=== PATIENT | male | born 1980 | race Caucasian/White ===

== ENCOUNTER 2020-02-15 17:50 | Emergency (ER) | payer OTHER, SELFPAY ==
--- NOTE | ~2020-02-15 | XR_ITS ---
EXAMINATION: XR abdomen/kub 1V INDICATION: Hematuria TECHNIQUE: Supine views of the abdomen were obtained on 2 radiographs. COMPARISON: None FINDINGS: The bowel gas pattern is normal. No urinary tract calculi are identified. Phleboliths are n oted in the pelvis. IMPRESSION: 1. No radiographic correlate for the patient's symptoms. Reviewed, dictated and finalized at location A.
[2020-02-15 18:04] VITALS: BP 163/91; PULSE 81; RESP 16; O2SAT 99
--- NOTE | 2020-02-15 18:40 | ED.GENADULT ---
HPI - General Adult General Chief complaint: Urogenital-Male Stated complaint: blood in urine Time Seen by Provider: 02/15/20 18:40 Source: patient and RN notes reviewed Mode of arrival: ambulatory Limitations: no limitations History of Present Illness HPI narrative: 39-year-old male presents with complaints of dysuria for 1 day. Dysuria consist of intermittent burning, frequency, and hematuria.? Chaz says approximately at 10am he noticed something sticky on his leg and went to the bathroom, it was blood he then urinated blood. Has had several bloody urines since. No treatment.? History of kidney stones. Denies fever or chills.? Denies nausea, vomiting, and abdominal pain. No genital discharge.? No concerns for STDs. No new back or flank pain.? No injuries. Exacerbating factors urinating.? Denies genital bleeding. Remains active. The patient reports he have not been diagnosed with COVID-19. The patient reports he is not waiting for the results of a COVID-19 lab test. The patient reports he do not have fever, chills, weakness, or fatigue. The patient reports he do not have a new or worsening cough or shortness of breath. Denies chest pain. The patient reports he do not have any rhinorrhea, congestion, sore throat, and diarrhea. Tolerating po intake well. Denies recent traveling. Denies concerns for COVID-19 or exposures been home since [id number] order except for essential household needs, working, and return home. At this time, patient is not suspected of having COVID-19. Some parts of this dictation were generated by voice recognition software and may contain typographical and/or grammatical inaccuracies. Related Data Allergies Allergy/AdvReac Type Severity Reaction Status Date / Time No Known Allergies Allergy Verified 02/15/20 18:02 Review of Systems Review of Systems: Narrative: CONSTITUTIONAL: Denies fever, chills, sweats. EYES: Denies visual changes, redness, discharge. ENT: Denies rhinorrhea, congestion, sore throat, otalgia. CARDIOVASCULAR: Denies chest pain, palpitations, edema. RESPIRATORY: Denies dyspnea, wheezing, cough. GASTROINTESTINAL: Denies abdominal pain, nausea, vomiting, diarrhea. GENITOURINARY: Complains of dysuria (burning, hematuria, and frequency). Denies abnormal discharge. SKIN: Denies rash or itching. MUSCULOSKELETAL: Denies acute back pain, joint pain, or myalgia. NEUROLOGIC: Denies numbness or focal weakness. PSYCHIATRIC: Denies anxiety or depression. All other systems reviewed are negative, except as documented in HPI and below. [facility] Past Medical History Medical History Chronic back pain Kidney stones Surgical History Surgical History No significant past surgical history Family History Family History Father Family history of seizure disorder Other Malignant neoplasm of prostate Social History Social History (Updated 02/15/20 @ 18:56 by MERE Montano) Smoking status: Former smoker Second hand tobacco smoke exposure: No Smoking end date: 01/21/10 Alcohol intake: current Substance use: never Living arrangements: with family Occupation/Education: occupation Gender identity (if verbalized by the patient): Male Comments At time of signature, agree with nurse past medical, surgical, social, and family history.? There is relevant patient's past medical history pertinent to the presenting complaint, no relevant family history pertinent to the presenting complaint. Exam Narrative: Exam Narrative: GENERAL: This is a well-nourished, well-developed patient, in no apparent distress.? Talks in full sentences and ambulates with steady gait without dyspnea. HEAD: normocephalic, atraumatic. EYES: PERRL. Sclera clear/white. Vision is grossly intact. CARDIOVASCULAR: Regular rate and rhythm
== END 2020-02-15 19:17 | disposition home or self-care (01) ==
PROVIDERS: Emergency Provider Nurse Practitioner Family
DX: R31.9 Hematuria, unspecified (principal)
CPT/HCPCS: 74018; 81003; 87086; 99203; G0463

== ENCOUNTER 2024-11-05 08:04 | Emergency (ER) | payer OTHER, SELFPAY ==
--- OUTSIDE RECORDS SUMMARY | 2024-11-05 08:06 | XMS_ITS | Encounter Summary ---
Author Organization [facility] Address [address] [address] Care Team Providers Care Stonemason Name Role Phone Unavailable Primary Care Provider Unavailabl e Encounter Details Date Type Department Care Team (Late st Contact Info) Description 11/09/2020 Lab Requisition [facility] DermPath Lab [address] [place] [id number] Christopher Leal MD [address] [place] [address] Social History Tobacco Use Types Packs/Day Years Used Date Smoking Tobacco: Never Assessed Sex and Gender Information Value Date Recorded Sex Assigned at Not on file Gender Identity Not on file Sexual Orientation Not on file documented as of this encounter Plan of Treatment Not on file documented as of this encounter Procedures Procedure Name Priority Date/Time Associated Diagnosis Comments DERMATOPATHOLOGY Routine 11/07/2020 3:33 AM CDT documented in this encounter Results * DERMATOPATHOLOGY (11/07/2020 3:33 AM CDT) Case Report Dermatopathology Report Case: [id number] Authorizing Provider: Christopher Leal MD Collected: 11/07/2020 03:33 AM Ordering Location: [facility] Derm[facility] Lab Received: 11/09/2020 02:04 PM Pathologist: Stephan Chakraborty MD Specimen: Skin, left upper back 3:26 PM CDT DERMATOPATHOLOGY LABORATORY Final Diagnosis Specimen A. 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 Path# [id number]. 3:26 PM CDT DERMATOPATHOLOGY LABORATORY Gross Description Specimen A: Received is one formalin filled container labeled with the patient's name and designated left upper back. The specimen consists of a shave biopsy measuring [id number]. Jar 0. . 3:26 PM CDT DERMATOPATHOLOGY LABORATORY Microscopic Description Specimen A. SKIN, left upper back: There are nests of melanocytes at the dermal-epidermal junction and within the dermis. 3:26 PM CDT DERMATOPATHOLOGY LABORATORY Disclaimer An external and internal positive and negative controls are appropriate for the histochemical, immunohistochemical and immunofluorescence stain(s) in this case (if any), except where stated explicitly. The performance characteristics of the stain(s) cited in this report were developed and its performance characteristic determined by the Dermatopathology Laboratory at [facility], directed by Dr. Marleny Chakraborty. These tests need not be, and therefore are not, approved by the [place] Food and Drug Administration. The tests are used for clinical purposes. Billing Codes Specimen Charges Stain Charges 82597 1 3:26 PM CDT DERMATOPATHOLOGY LABORATORY Embedded Images 3:26 PM CDT DERMATOPATHOLOGY LABORATORY Pathology/Cytolo gy TISSUE SPECIMEN FROM SKIN / Unknown 11/07/2020 3:33 AM CDT 11/09/2020 2:04 PM CDT Christopher Leal MD LAB - PATHOLOGY/CYTO LOGY ORDERABLES DERMATOPATHOLOGY LABORATORY [facility] - Department of Dermatology [address] [phone] documented in this encounter Visit Diagnoses Not on filedocumented in this encounter
--- OUTSIDE RECORDS SUMMARY | 2024-11-05 08:06 | XMS_ITS | Referral Summary ---
Author Organization [facility] Address [address] [place] [address] Care Team Providers Care Consulting Services Manager Name Role Phone Unavailable Primary Care Provider Unavailabl e Source Comments [facility],non-[facility] Affiliates and Associated Physician Practices is amultiple site organization consisting of ambulatory clinics and hospital sitesin [place], [place], [place] and [place]. This disclosure is being madepursuant to the Care Everywhere program and may not contain all information available regarding this patient. Last updated 18.[facility] [employer] Social History Tobacco Use Types Packs/Day Years Used Date Smoking Tobacco: Never Assessed Sex and Gender Information Value Date Recorded Sex Assigned at Not on file Gender Identity Not on file Sexual Orientation Not on file Plan of Treatment Not on file
--- OUTSIDE RECORDS SUMMARY | 2024-11-05 08:06 | XMS_ITS | Data Portability ---
Author Organization [place] [facility] [employer], Main Office Address [address] [place] [address] Assessment No assessment recorded. Plan of Treatment Reminders Order Date Submit Date Provider Last Modified By Organization Details Last Modified Time Details Appointments None record ed. Lab None record ed. Referral None record ed. Procedures None record ed. Surgeries None record ed. Imaging None record ed. Medication Orders None record ed. Patient TargetsNo targets recorded. Patient InstructionsNo instructions recorded. Reason for Referral None Reported. Results Created Date Observation Date Name Description Value Unit Range Abnormal Flag Note LastModifiedBy Organization Detail LastModifiedTime Result Notes None recorded. Problems No Known Problems Procedures Surgical History Date Name Laterality Status Provider Name and Address Organization Details Recorded Time extraction of wisdom tooth completed Not Available [facility] 10/21/2022 22:05:28 Imaging Results None recorded. Procedure Notes None recorded. Medical Equipment None Reported. Allergies No known drug allergies Medications Name Sig Start Date Stop Date Status Note LastModified by Organization Details LastModified Time ciprofloxacin 500 mg tablet TK 1 T PO Q 12 H 08/05 completed Not Available Not Available Not Available tamsulosin 0.4 mg capsule 04/25 completed Not Available Not Available Not Available cyclobenzapri ne 5 mg tablet Take 1 tablet every day by oral route for 5 days. 08/05 completed for back pain Not Available Not Available Not Available Vitals Date Recorded Body mass index (BMI) Body height Oxygen saturation Oxygen saturation in Arterial blood by Pulse oximetry Heart rate Body temperature Body weight Systolic blood pressure Diastolic blood pressure Provider Name and Address Organization Details Last Updated DateTime 2 29.8 kg/m2 187.96 cm 97 % 97 % 62 /min 97.2 [degF] 658021. 43 g 122 mm[Hg] 84 mm[Hg] Not Available [facility] 3 22:06:00 Social History Question Answer Notes LastModified by Organizat ion Details LastModified Time Tobacco Smoking Status Former Smoker Not Available [facility] 10/21/2022 22:05:20 Do You Have An Advance Directive? No [id number] Information not available 10/21/2022 What Is Your Level Of Alcohol Consumption? Heavy [id number].[id number] Information not available 10/21/2022 What Is Your Level Of Caffeine Consumption? Heavy [id number].[id number] 0884 Information not available 10/21/2022 In The 14 Days Before Symptom Onset, Have You Had Close Contact With A Laboratory-confir med COVID-19 While That Case Was Ill? No [id number].[id number] Information not available 10/21/2022 In The 14 Days Before Symptom Onset, Have You Had Close Contact With A Person Who Is Under Investigation For COVID-19 While That Person Was Ill? No [id number] 1767 Information not available 10/21/2022 Are You Currently Employed? Yes [email or web address] Information not available 08/10/2023 What Type Of Diet Are You Following? REGULAR [id number].[id number] Information not available 10/21/2022 Do You Or Have You Ever Used E-cigarettes Or Vape? 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 No [id number].[id number] 8708 Information not available 10/21/2022 When Did You Quit Smoking? 11-15yearssinc elastcigarette 2009 [id number].[id number] 7731 Information not available 10/21/2022 Are There Any Guns Present In Your Home? No [id number].[id number] 5115 Information not available 10/21/2022 Do You Use Insect Repellent Routinely? No [id number] 7230 Information not available 10/21/2022 Do You Have A Medical Power Of Board Mixer Tender? No [id number].[id number] 6404 Information not available 10/21/2022 What Is Your Relationship Status? MIGRATION.[id number] 6003 Information not available 10/21/2022 Do You Use Your Seat Belt Or Car Seat Routinely? Yes [email or web address] Information not available 08/10/2023 Do You Have Smoke And Carbon Monoxide Detectors In Your Home? Yes MIGRATION.[id number] 9515 Information not available 10/21/2022 At What Age Did You Start Smoking Tobacco? 19 MIGRATION.874366 8145 Information not available 10/21/2022 Do You Use Any Illicit Or Recreational Drugs? No [id number].621189 9145 Information not available 10/21/2022 Do You Use Sunscreen Routinely? Yes [id number].525994 3270 Information not available 10/21/2022 Have You Recently Traveled Abroad? No MIGRATION.101966 2176 Information not available 10/21/2022 Do You Have Any Dietary Restrictions? No MIGRATION.110759 9286 Information not available 10/21/2022 Do You Or Have You Ever Used Any Other Forms Of Tobacco Or Nicotine? Yes MIGRATION.931800 0357 Information not available 10/21/2022 Sex: Unknown Functional Status Question Answer Note LastModified by Organizat ion Details LastModified Time What is your exercise level? Occasional [id number] Information not available 10/21/2022 Mental Status None recorded. Family History Relationship Description Onset Age of this Age Resolved Age Notes LastModified by Organization Details LastModified Time Father Epilepsy [id number] Not available 10/21/2022 22:05:29 Medical History Condition Response KIDNEY STONES Y Past Encounters Encounter ID Performer Location Encounter Start Date Encounter Closed Date Diagnosis/Indication Diagnosis SNOMED-CT Code Diagnosis ICD10 Code Diagnosis Note [id number] [facility] [place] [address] [place] [address] 08/11/2022 00:00:00 08/19/2022 13:23:19 Health Concerns Section Related Observation LastModified by Organization Detai ls LastModified Time None Recorded Concern Status LastModified by Organization Details LastModified Time None Recorded Advance Directives Directive N: Payers None recorded.
--- OUTSIDE RECORDS SUMMARY | 2024-11-05 08:06 | XMS_ITS | Patient Health Summary ---
Author Organization [facility] Address [address] [place] [address] Care Team Providers Care Ent Physician Name Role Phone Unavailable Primary Care Provider Unavailabl e Note from [facility],non-owned Affiliates and Associated Physician Practices is amultiple site organization consisting of ambulatory clinics and hospital sitesin [place], [place] and [place]. This disclosure is being madepursuant to the Care Everywhere program and may not contain all information available regarding this patient. Last updated 18.[facility] Social History Tobacco Use Types Packs/Day Years Used Date Smoking Tobacco: Never Assessed Sex and Gender Information Value Date Recorded Sex Assigned at Not on file Gender Identity Not on file Sexual Orientation Not on file Procedures * DERMATOPATHOLOGY(Performed 11/07/2020) Results * DERMATOPATHOLOGY (11/07/2020 3:33 AM CDT) Case Report Dermatopathology Report Case: [id number] Authorizing Provider: Christopher Leal MD Collected: 11/07/2020 03:33 AM Ordering Location: [facility] DermPath Lab Received: 11/09/2020 02:04 PM Pathologist: Stephan Chakraborty MD Specimen: Skin, left upper back 3:26 PM CDT DERMATOPATHOLOGY LABORATORY Final Diagnosis Specimen A. 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 Path# [id number]. 3:26 PM CDT DERMATOPATHOLOGY LABORATORY Gross Description Specimen A: Received is one formalin filled container labeled with the patient's name and designated left upper back. The specimen consists of a shave biopsy measuring 14l3n1xd. Jar 0. . 3:26 PM CDT DERMATOPATHOLOGY [...] characteristic determined by the Dermatopathology Laboratory at [facility], directed by Dr. Marleny Chakraborty. These tests need not be, and therefore are not, approved by the [place] Food and Drug Administration. The tests are used for clinical purposes. Billing Codes Specimen Charges Stain Charges 18161 1 3:26 PM CDT DERMATOPATHOLOGY LABORATORY Embedded Images 3:26 PM CDT DERMATOPATHOLOGY LABORATORY Pathology/Cytolo gy TISSUE SPECIMEN FROM SKIN / Unknown 11/07/2020 3:33 AM CDT 11/09/2020 2:04 PM CDT Christopher eLal MD LAB - PATHOLOGY/CYTO LOGY ORDERABLES DERMATOPATHOLOGY LABORATORY [facility] - Department of Dermatology [address] [phone]
--- OUTSIDE RECORDS SUMMARY | 2024-11-05 08:06 | XMS_ITS | Clinical Summary ---
Author Organization [facility] Address [address] [place] [address] Care Team Providers Care Shredder Tender Name Role Phone Unavailable Primary Care Provider Unavailabl e Source Comments [facility],non-[facility] Affiliates and Associated Physician Practices is amultiple site organization consisting of ambulatory clinics and hospital sitesin [place], [place], [place] and [place]. This disclosure is being madepursuant to the Care Everywhere program and may not contain all information available regarding this patient. Last updated 18.[facility] [employer] Social History Tobacco Use Types Packs/Day Years Used Date Smoking Tobacco: Never Assessed Sex and Gender Information Value Date Recorded Sex Assigned at Not on file Gender Identity Not on file Sexual Orientation Not on file Plan of Treatment Health Maintenance Due Date Last Done Comments LIPID TESTING 1982 HIV SCREENING 1997 HEPATITIS C SCREENING 09/10/2000 DTAP/TDAP/TD VACCINES (1 - Tdap) 2001 HEPATITIS B VACCINE (1 of 3 - 19+ 3-dose series) 2001 COVID-19 VACCINE ( - 2023-2 5 season) 2024 INFLUENZA VACCINE (#1) 2024 DEPRESSION SCREENING 08/23/2024 ZOSTER VACCINE (1 of 2) 2032 HIB VACCINE Aged Out No longer eligi ble based on patient's age to complete this topic HPV VACCINE Aged Out No longer eligi ble based on patient's age to complete this topic MENINGOCOCCAL (Group B) VACC INE SHARED DECISION-MAKING Aged Out No longer eligibl e based on patient's age to complete this topic MENINGOCOCCAL GROUPS A/C/Y/W VACCINE Aged Out No longer eligible b ased on patient's age to complete this topic PNEUMOCOCCAL VACCINE Aged Out No long er eligible based on patient's age to complete this topic
--- OUTSIDE RECORDS SUMMARY | 2024-11-05 08:06 | XMS_ITS | Clinical Summary ---
Author Organization [facility] Address [address] [place] [address] Phone Care Team Providers Care Hvac Sales Representative Name Role Phone Janice Bower Primary Care Provider Allergies No known active allergies Medications cyclobenzaprine (FLEXERIL) 5 MG Tablet Take 1 Tab by mouth 3 times daily as needed for Muscle spasms. 15 Tab 04/22/2020 Active Social History Tobacco Use Types Packs/Day Years Used Date Smoking Tobacco: Never Smokeless Tobacco: Never Alcohol Use Standard Drinks/Week Comments Yes 3 (1 standard drink = 0.6 oz pur e alcohol) weekly/ weekends Sex and Gender Information Value Date Recorded Sex Assigned at Not on file Legal Sex Male 12:05 AM CDT Gender Identity Not on file Sexual Orientation Not on file Last Filed Vital Signs Vital Sign Reading Time Taken Comments Blood Pressure 148/85 04/22/2020 5:05 PM CDT Pulse 78 04/22/2020 5:05 PM CDT Temperature 36.6 C (97.8 F) 04/22/2020 2:15 PM CDT Respiratory Rate 18 04/22/2020 5:05 PM CDT Oxygen Saturation 98% 04/22/2020 5:05 PM CDT Inhaled Oxygen Concentration - - Weight 103.4 kg (228 lb) 04/22/2020 2:15 PM CDT Height 190.5 cm (6' 3 ) 04/22/2020 2:15 PM CDT Body Mass Index 28.5 04/22/2020 2:15 PM CDT Plan of Treatment Health Maintenance Due Date Last Done Comments Hepatitis C Virus (HCV) Screening 1982 TdaP Immunization 1982 Hepatitis B Immunization (1 of 3 - 19+ 3-dose series) 2001 Influenza Immunization (#1) 2024 SARS-COV-2 Immunization (3 - 2023- season) 2024 07/19/2021, 05/25/2021 Respiratory Syncytial Virus (RSV) Immunization (Adult) (1 - 1-dose 75+ series) 2057 Meningococcal Immunization (ACWY) Aged Out No longer eligible b ased on patient's age to complete this topic Pneumococcal Immunization Combined Aged Out No longer eligible b ased on patient's age to complete this topic Rotavirus Immunization Aged Out No lo nger eligible based on patient's age to complete this topic Care Teams Hvac Sales Representative Relationship Specialty Start Date End Date Janice Bower PA PCP - General Family Medicine 04/22/20
[2024-11-05 08:08] VITALS: BP 147/86; PULSE 66; RESP 16; TEMP 35.7; O2SAT 97
--- NOTE | 2024-11-05 08:15 | ED.EYEPROB ---
HPI - Eye Problem General Chief complaint: Eye Problems Stated complaint: Right Eye Problem Source: patient, RN notes reviewed and old records reviewed Mode of arrival: ambulatory Limitations: no limitations History of Present Illness HPI Narrative: 44 year old male who presents to [facility] care with complaints of right eye redness and irritation which he noted last night. He states that he had been rubbing his right eye yesterday that it felt like he had something in his eye. Today patient reports that he doesn't feel like anything is in his eye but has redness and some irritation and streaking on his lateral aspect of his sclera. Patient denies any drainage from his right eye. Patient refuses to have eye exam with staining of right eye and de jesus light exam. Patient reports no visual changes, states strain feeling when he looks certain way. Patient reports that he is on the computer daily sometimes 14 hours daily. MD chief complaint: eye redness Onset (ago): day(s) (since yesterday) Onset description: gradual Location: right eye Eye Symptoms: redness, pain and itching Severity scale (1-10): 4 Treatments Prior to Arrival: OTC eye drops (visine) Related Data Home Medications ?Medication ?Instructions ?Recorded ?Confirmed ?Last Taken ?Type No Home Medications 11/05/24 11/05/24 Unknown History Allergies Allergy/AdvReac Type Severity Reaction Status Date / Time No Known Allergies Allergy Verified 11/05/24 08:20 Review of Systems Review of Systems: CONSTITUTIONAL: Denies fever, chills, or sweats. EYES: Denies visual changes. Reports redness, irritation, no discharge from right eye, states felt like something in eye yesterday and was rubbing his eye reports he doesn't feel like something is in his eye now. ENT: Denies rhinorrhea, congestion, sore throat, or otalgia. CARDIOVASCULAR: Denies chest pain, palpitations, or edema. RESPIRATORY: Denies cough or dyspnea. SKIN: Denies rash or itching. NEUROLOGIC: Denies headache All systems reviewed & are unremarkable except as noted in HPI and below PMFSH Past Medical History Medical History Chronic back pain Kidney stones Surgical History Surgical History No significant past surgical history Family History Family History Father Family history of seizure disorder Other Malignant neoplasm of prostate Social History Social History Smoking status: Former smoker Second hand tobacco smoke exposure: No Smoking end date: 01/21/10 Alcohol intake: current Substance use: never Living arrangements: with family Occupation/Education: occupation Gender identity (if verbalized by the patient): Male Comments At time of signature, agree with nursing past medical, surgical, social and family history. There is no relevant family history pertinent to the presenting complaint Exam Narrative: GENERAL: Well-appearing, well-nourished, and in no acute distress. HEAD: Normocephalic, atraumatic. EYES: PERRLA and EOMI. Upper and lower eyelids unremarkable. No periorbital cellulitis noted. Sclera injected right eye on lateral aspect, conjunctivae clear right eye.no drainage.denies any visual changes or sharp pain to his right eye, states feels strain sensation if he looks certain ways. ENT: Nares clear, no rhinorrhea or epistaxis. Mucous membranes moist. NECK: Supple. no lymphadenopathy CHEST: Clear to auscultation. No respiratory distress. SAO2 97% on room air HEART: Regular rate and rhythm. No murmur heard. Normal peripheral pulses. SKIN: Warm, dry, no rash. NEURO: No focal deficits. Alert and oriented x3. Course Course Emergency Course: Patient is aware of diagnosis, understands and agrees to treatment plan. Anticipatory guidance given. Patient agrees to follow-up as directed and is aware of reasons to seek care at the emergency department. Portions of this record may have been created with voice recognition software Level of Care: Express Care Visit Vital Signs Vital signs: Vital Signs Temperature 35.7 C L 11/05/24 08:08 Pulse Rate 66 11/05/24 08:08 Respiratory Rate 16 11/05/24 08:08 Blood Pressure 147/86 H 11/05/24 08:08 Pulse Oximetry 97 11/05/24 08:08 Oxygen Delivery Room Air 11/05/24 08:08 Temperature 35.7 C L 11/05/24 08:08 Pulse Rate 66 11/05/24 08:08 Respiratory Rate 16 11/05/24 08:08 Blood Pressure 147/86 H 11/05/24 08:08 Pulse Oximetry 97 11/05/24 08:08 Oxygen Delivery Room Air 11/05/24 08:08 Reviewed MDM - Eye Problem MDM Narrative Medical decision making narrative: Consideration of the following conditions may be warranted for the presenting problem, they are not final diagnoses: Bacterial conjunctivitis, allergic conjunctivitis, viral conjunctivitis, foreign body, blepharitis, chalazion, hordeolum, corneal abrasion.? Exam findings show no acute concerns or changes; patient is non-toxic appearing and is in no distress.? Patient is appropriate for outpatient treatment and follow-up. Differential Diagnosis Differential diagnosis: Likely corneal abrasion, conjunctivitis, subconjunctival hemorrhage and other (sclera abrasion) Medical Records Attestation: I reviewed the patient's medical records. Critical Care Time Critical Care Time Critical Care Time: No Discharge Plan Discharge Clinical Impression: Subconjunctival hemorrhage, Abrasion of sclera of right eye Patient Disposition: Home, Self-Care Condition: Stable Instructions: How to Use Eye Drops (ED) Additional Instructions: Cold compresses to the eyes for comfort May need warm compresses to remove debris in the morning When cleaning the eyes used a washcloth in one direction then change washcloths or use a cotton ball in one direction and then his cotton balls Eyedrops as directed--may be more soothing if left in the refrigerator Do not share medicine--do not touch the eye with the medicine Tylenol or ibuprofen for pain Avoid screen time--television, computer, tablet or phone. Also no reading or driving Follow-up with PCP or hand grinder as directed if no improvement 48 hours If your symptoms persist, change or worsen significantly before you can contact your personal physician then please, without delay, go to the emergency department for further evaluation. Follow-up with PCP in 7-10 days or sooner if needed Follow up with PCP soon in regards to your blood pressure which is elevated above threshold for referral. Blood pressure above 120/80 may indicate pre-hypertension. Blood pressure 147/86 Patient Language: Czech Prescriptions: New ofloxacin 0.3 % drops See Rx Instructions .ROUTE .COMPLEX Qty: 10 0RF Rx Instructions: put 1-2 drps into affected eye(s) every 2-4 h x 2 days, then 1-2 drps 4 times/day days 3-7 No Action No Home Medications Follow-up/Referrals: PHYSICIAN,[facility] [Primary Care Provider] - Time of Disposition: 08:35 Quality [place] Coma Scale Eyes: Open Verbal: Oriented and Alert Motor: Follows Commands Sarabjit Coma Total Score: 15
== END 2024-11-05 08:33 | disposition home or self-care (01) ==
PROVIDERS: Emergency Provider Registered Nurse
DX: H11.31 Conjunctival hemorrhage, right eye (principal); S05.01XA Injury of conjunctiva and corneal abrasion without foreign body, right eye, initial encounter; X58.XXXA Exposure to other specified factors, initial encounter; Z87.891 Personal history of nicotine dependence
CPT/HCPCS: 99213; A9270; G0463